=== PATIENT | female | born 1980 | race Two or more races ===

== ENCOUNTER → 2025-05-14 | Emergency (ER) | payer OTHER ==
[~2025-05-14] VITALS: Ht 165.1 cm; Wt 99.8 kg
[~2025-05-14] MED LIST: 0.9 % SODIUM CHLORIDE 1,000 ML IV ONE; ACETAMINOPHEN 500 MG GEL..CAP PO ONE; AMBIEN5 MG PO; CITALOPRAM10 MG/5 ML PO; COZAAR100 MG PO; CRYSELLE-28 TA1 EACH PO; ESTROGENS, CONJUGATED 25 MG VIAL IV ONE; ESTROGENS, CONJUGATED 25 MG VIAL ONE; FAMOTIDINE/PF 20 MG/2 ML VIAL ONE; FAMOtidine 10 MG/ML (4ML VIAL) IV PUSH ONE; LIPITOR40 M1 PO; MOUNJARO2.5 MG/0.5 SQ; NORVASC2.5 M1 PO
[2025-05-14 18:43] LABS: BASO % 0.7 % (0.1-1.2); EOS # 0.23 (0.04-0.54); EOS % 2.8 % (0.7-7.0); LYMPH # 2.12 (1.18-3.74); LYMPH % 25.7 % (19.3-53.1); MEAN PLATELET VOLUME 10.20 fl (9.4-12.4); MONO # 0.54 (0.24-0.82); MONO % 6.5 % (4.7-12.5); NEUT # 5.27 (1.56-6.13); NEUT % 63.9 % (34.0-71.1); RED CELL DISTRIBUTION WIDTH 12.8 % (11.6-14.4)
[2025-05-14 19:51] LABS: ALT/SGPT 36 U/L (12-78); AST/SGOT 19 U/L (15-37); BILIRUBIN TOTAL 0.48 mg/dL (0.3-1.2); BUN CREA RATIO 20 (7.0-25.0); CREATININE SERUM 0.64 mg/dL (0.55-1.02); GFR 99.47; GLOBULINA 3.5 G/DL (2.4-3.5); GLUCOSE FASTING 95 mg/dL (65-100); OSMOLALITY SERUM 281 MOSM/KG (275-295)
[2025-05-14 19:58] LABS: URINE APPEARANCE Clear; URINE BILIRRUBIN Negative (NEGATIVE); URINE BLOOD Large; URINE COLOR Yellow; URINE GLUCOSE Negative (NEGATIVE); URINE LEUKOCYTE Trace; URINE NITRATE Negative; URINE PROTEIN Negative (NEGATIVE); URINE UROBILINOGEN 0.2 E.U./dl
[2025-05-14 19:59] LABS: HCG QUANTITATIVE < 1 mUI/mL (1-3)
[2025-05-14 20:02] LABS: URINE BACTERIA 32.3 uL (0.0-1933); URINE EPITHELIAL CELLS 2.6 uL (0.0-38.8); URINE RBC 2033.3 uL (0.0-20.8); URINE WBC 18.0 uL (0.0-23.2)
[2025-05-14 20:05] LABS: URINE CAST 0.00 uL (0.0-1.40); URINE KETONE 40 (NEGATIVE)
== END | disposition home or self-care (01) ==
LOC: ER 15:54
PROVIDERS: General Practice
DX: N93.9 Abnormal uterine and vaginal bleeding, unspecified (principal); D25.9 Leiomyoma of uterus, unspecified

== ENCOUNTER 2025-05-31 12:15 | Inpatient (IN) | payer OTHER ==
[~2025-05-31] VITALS: Ht 165.1 cm; Wt 100.2 kg
[~2025-05-31 12:15] MED LIST changes: -0.9 % SODIUM CHLORIDE 1,000 ML IV ONE; -ACETAMINOPHEN 500 MG GEL..CAP PO ONE; -ESTROGENS, CONJUGATED 25 MG VIAL IV ONE; -ESTROGENS, CONJUGATED 25 MG VIAL ONE; -FAMOTIDINE/PF 20 MG/2 ML VIAL ONE; -FAMOtidine 10 MG/ML (4ML VIAL) IV PUSH ONE
[2025-05-31 12:43] VITALS: BP 131/92
[2025-06-11] MEDS ORDERED: CEFAZOLIN SODIUM 1,000 MG VIAL IV ONE (13:15)
[2025-06-11] MEDS ORDERED: POVIDONE-IODINE 118 ML BOTT TOP ONE (13:15)
[2025-06-11] MEDS ORDERED: ONDANSETRON HCL 2 MG/ML VIAL IV PRN (15:15)
[2025-06-11] MEDS ORDERED: RINGERS SOLUTION,LACTATED 1,000 ML IV SCH (15:15)
[2025-06-11] MEDS ORDERED: MORPHINE SULFATE 4 MG/ML CARTRIDGE IV PRN (16:45)
[2025-06-11] MEDS ORDERED: CEFAZOLIN SODIUM 1,000 MG VIAL IV SCH (18:00)
[2025-06-11 18:05] VITALS: BP 145/86
[2025-06-11 21:02] LABS: BASO % 0.3 % (0.1-1.2); EOS # 0.02 (0.04-0.54); EOS % 0.2 % (0.7-7.0); LYMPH # 0.93 (1.18-3.74); LYMPH % 8.4 % (19.3-53.1); MEAN PLATELET VOLUME 10.30 fl (9.4-12.4); MONO # 0.73 (0.24-0.82); MONO % 6.6 % (4.7-12.5); NEUT # 9.31 (1.56-6.13); NEUT % 84.0 % (34.0-71.1); RED CELL DISTRIBUTION WIDTH 15.1 % (11.6-14.4)
[2025-06-12] VITALS: BP 128/85
[2025-06-12 04:30] VITALS: BP 122/80
[2025-06-12] MEDS ORDERED: GABAPENTIN 300 MG CAPSULE PO PRN (07:00)
[2025-06-12 08:35] VITALS: BP 140/88
[2025-06-12] MEDS ORDERED: LOSARTAN/HYDROCHLOROTHIAZIDE 1 TAB TABLET PO SCH ×2 (09:00)
[2025-06-12] MEDS ORDERED: AMLODIPINE BESYLATE 5 MG TABLET PO SCH (09:00)
[2025-06-12] MEDS ORDERED: ENOXAPARIN SODIUM 40 MG/0.4 ML SYRINGE SUBCUTANEO SCH (09:00)
[2025-06-12] MEDS ORDERED: HYOSCYAMINE SULFATE 0.125 MG TAB.SUBL SL SCH (13:00)
[2025-06-12 16:04] VITALS: BP 115/74
[2025-06-13 00:46] VITALS: BP 124/78
[2025-06-13] MEDS ORDERED: GABAPENTIN300 MG PO (05:58)
[2025-06-13] MEDS ORDERED: HYOSCYAMINE0.125 M1 SL (05:58)
[2025-06-13] MEDS ORDERED: IBUPROFEN800 MG PO (05:59)
[2025-06-13 09:06] VITALS: BP 130/81
== END 2025-06-13 09:14 | disposition home or self-care (01) | DRG 743 ==
LOC: O/R 06-11 11:00 → OB/GYN 06-11 11:00 → SURH 06-11 12:15 → OB/GYN 06-11 15:32
PROVIDERS: ADMIT Obstetrics & Gynecology Gynecology; ATTEND Obstetrics & Gynecology Gynecology
PROC: 0UT70ZZ Resection of Bilateral Fallopian Tubes, Open Approach (ICD-10-PCS; 2025-06-11)
PROC: 0USG0ZZ Reposition Vagina, Open Approach (ICD-10-PCS; 2025-06-11)
PROC: 0UT90ZZ Resection of Uterus, Open Approach (ICD-10-PCS; principal; 2025-06-11 18:00)
DX: D25.1 Intramural leiomyoma of uterus (principal); D25.2 Subserosal leiomyoma of uterus; N93.9 Abnormal uterine and vaginal bleeding, unspecified

== ENCOUNTER 2025-06-09 08:00 | Outpatient (CLI) | payer OTHER | END 2025-06-09 23:00 | disposition home or self-care (01) | LOC: LAB 08:00 | DX: D25.1 Intramural leiomyoma of uterus (principal) ==